=== PATIENT | male | born 1960 | race Caucasian/White ===

== ENCOUNTER 2025-04-21 09:09 | Emergency (ER) | payer BC, SELFPAY ==
[2025-04-21] VITALS (7 sets, daily range): BP systolic 144–179; BP diastolic 83–108; PULSE 60–89; RESP 16–18; TEMP 36.7–37; O2SAT 98–99; BMI 28.3
--- NOTE | 2025-04-21 09:12 | EKG_ITS ---
[facility] Test Date: 2025-04-21 Pat Name: SINTIA BUNDY Department: Room: - Gender: Male [employer]: : 1960 Requested By: Pawel Thomas Order Number: [id number] Reading MD: Pawel Thomas Measurements Intervals Java Rate: 67 P: 44 WV: 149 QRS: 29 QRSD: 85 T: 41 QT: 419 QTc: 444 Interpretive Statements SINUS RHYTHM No previous ECG available for comparison /store/S0/[id number]
--- NOTE | 2025-04-21 09:27 | XR_ITS ---
EXAMINATION: PA chest single view TECHNIQUE: Upright PA chest single view Date and time: April 21, 2025, 0942 hours, comparison March 18, 2016 INDICATIONS: Chest pain today. FINDINGS: Normal heart size Ectatic thoracic aorta. No pneumonia or pulmonary edema Intact osseous structures IMPRESSION: No active disease
--- NOTE | 2025-04-21 09:27 | PD.EDRME ---
Rapid Medical Screening Exam [facility] Arrival date/time: 04/21/25 09:09 64-year-old male with no known medical history presents to the emergency room with a chief complaint of right-sided 5 out of 10 sternal chest pain that radiates to his neck x 2 days I have greeted and performed a focused initial assessment of this patient. A comprehensive ED assessment and evaluation of the patient, analysis of all test results, and completion of the medical decision making process will be conducted by additional ED providers. Chief Complaint: Chest Pain Time Seen by Provider: 04/21/25 09:47 Vital signs: Vital Signs Temperature 98.3 F 04/21/25 09:17 Pulse Rate 78 04/21/25 09:17 Respiratory Rate 18 04/21/25 09:17 Blood Pressure 179/108 H 04/21/25 09:17 Pulse Oximetry (%) 99 04/21/25 09:17 Oxygen Delivery Method Room Air 04/21/25 09:17 Vital signs reviewed by provider: Yes Exam: 5 out of 10 sternal right-sided chest pain that radiates to the neck Strong and regular rhythm S1 and S2 noted no clicks no murmurs no JVD Clear bilateral lung sounds Clinical Impression: STEMI/NSTEMI/chest pain
[2025-04-21 09:53] LABS: Basophils # (Auto) 0.1 Thou/mm3 (0.0-0.2); Basophils % (Auto) 1 % (0-2.5); Eosinophils # (Auto) 0.0 Thou/mm3 (0.0-0.5); Eosinophils % (Auto) 0 % (0-10); Hematocrit 46.3 % (41.0-53.0); Hemoglobin 16.2 g/dL (13.5-16.0); Immature Granulocytes Auto 0.02 Thou/mm3 (0.00-0.00); Lymphocytes # (Auto) 1.4 Thou/mm3 (1.0-4.8); Lymphocytes % (Auto) 16 % (10-50); Mean Corpuscular HGB Conc 35.0 g/dl (31.0-37.0); Mean Corpuscular Hemoglobin 34.2 pg (25.0-35.0); Mean Corpuscular Volume 98 fL (80-100); Monocytes # (Auto) 1.0 Thou/mm3 (0.0-0.8); Monocytes % (Auto) 11 % (0-12); Neutrophils # (Auto) 6.7 Thou/mm3 (1.8-7.7); Neutrophils % (Auto) 72 % (37-80); Nucleated Red Blood Cell # 0.00 Thou/mm3 (0.00-0.00); Nucleated Red Blood Cell % 0 /100 WBC (0); Platelet Count 281 Thou/mm3 (140-440); RDW Standard Deviation 41.6 fL (35.1-43.9); Red Blood Count 4.73 Miln/mm3 (4.50-5.90); White Blood Count 9.2 Thou/mm3 (3.8-10.6)
[2025-04-21 10:06] LABS: INR 1.0 (0.9-1.3); Partial Thromboplastin Time 28.2 Seconds (22.0-36.0); Prothrombin Time 10.9 Seconds (9.0-12.2)
[2025-04-21 10:08] LABS: B-Type Natriuretic Peptide < 20 pg/mL (0-100)
[2025-04-21 10:09] LABS: Collection Type, Urine Clean Catch; Squamous Epithelial Cell,Urine 0 /hpf (0-5)
[2025-04-21 10:13] LABS: Alanine Aminotransferase 34 U/L (10-49); Albumin, Serum 5.3 gm/dL (3.4-4.8); Albumin/Globulin Ratio 1.9 (1.2-2.2); Alkaline Phosphatase 71 U/L (46-116); Anion Gap 10 (7-16); Aspartate Amino Transferase 35 U/L (0-34); BUN/Creatinine Ratio 8 Ratio (12-20); Bilirubin,Total 0.7 mg/dL (0.3-1.2); Blood Urea Nitrogen 11 mg/dL (9-23); Calcium 9.7 mg/dL (8.3-10.6); Calcium (Corrected) 9.7 mg/dL (8.5-10.1); Carbon Dioxide 26.0 mMol/L (20.0-31.0); Chloride 105 mMol/L (98-107); Creatinine (Component) 1.3 mg/dL (0.6-1.3); Estimated Creatinine Clearance 56.5 mL/min (>60); Free T4 (Free Thyroxine) 1.32 ng/dL (0.89-1.76); Globulin 2.8 gm/dL (2.3-3.5); Glucose 109 mg/dL (74-106); Magnesium 2.2 mg/dL (1.6-2.6); Osmolality,Calculated 281 (275-295); Potassium 4.2 mMol/L (3.4-5.1); Sodium 141 mMol/L (136-145); Thyroid Stimulating Hormone 1.00 uIU/mL (0.55-4.78); Total Protein 8.1 gm/dL (5.7-8.2); Troponin I < 0.020 ng/mL (0.0-0.045); eGFR > 60 See Note
[2025-04-21 10:13] LABS: Bilirubin,Urine Negative (Negative); Blood,Urine Negative (Negative); Clarity,Urine Clear (Clear/Hazy); Color,Urine Colorless (Lt Yel-Yel); Culture Indicated,Urine Not Indicated; Glucose, Urine Negative (Negative); Ketones,Urine Negative (Negative); Leukocyte Esterase,Urine Negative (Negative); Nitrite,Urine Negative (Negative); PH,Urine 6.0 (5.0-7.0); Protein,Urine Negative (Neg - Trace); RBC,Urine 1 /hpf (0-3); Specific Gravity,Urine 1.005 (1.001-1.035); Urobilinogen,Urine Negative mg/dL (0.0-1.0); WBC,Urine < 1 /hpf (0-5)
[2025-04-21 10:27] LABS: Amphetamine/Methamp Scrn,U Negative (Negative); Barbiturate Screen,Urine Negative (Negative); Benzodiazepines Screen,Urine Negative (Negative); Benzoylecgonine Screen, Ur Negative (Negative); Fentanyl Screen,Urine Negative (Negative); Opiate Screen,Urine Negative (Negative); THC Screen,Urine Positive (Negative)
--- NOTE | 2025-04-21 11:18 | PD.EDCHEST ---
ED Chest Pain RME/HPI General Chief Complaint: Chest Pain Stated Complaint: CHEST PAIN SINCE LAST NIGHT Time Seen by Provider: 04/21/25 09:47 Arrival date/time: 04/21/25 09:09 Limitations: no limitations RME / HPI RME / HPI narrative: 04/21/25 09:09 64-year-old male with no known medical history presents to the emergency room with a chief complaint of right-sided 5 out of 10 sternal chest pain that radiates to his neck x 2 days I have greeted and performed a focused initial assessment of this patient. A comprehensive ED assessment and evaluation of the patient, analysis of all test results, and completion of the medical decision making process will be conducted by additional ED providers. DR. STEWART MAIN ED EVALUATION: 64 year old male with no known medical history presents to the ED for evaluation of persistent right-sided chest pain without radiation beginning last night. Described as pressure sensation and muscle pain , rating as moderate. Reportedly took Pepcid thinking it may be due to reflux with no change in pain. States after waking noted the pain was still there, prompting ED visit. Denies any associated cough, shortness of breath, sweats, nausea, vomiting, or abdominal pain. No history of similar symptoms or known cardiac history. No other complaints reported. Patient mentioned he is active and while hiking or exercising in the past has not experience chest pain. No known family cardiac history. Exam: 5 out of 10 sternal right-sided chest pain that radiates to the neck Strong and regular rhythm S1 and S2 noted no clicks no murmurs no JVD Clear bilateral lung sounds Impression: STEMI/NSTEMI/chest pain Related Data Allergies Allergy/AdvReac Type Severity Reaction Status Date / Time No Known Allergies Allergy Verified 04/21/25 09:12 Review of Systems Review of Systems Systems Reviewed: All systems reviewed, normal except as documented Past Medical History Past Medical History CARDIAC: Negative Congestive Heart Failure RESPIRATORY: Negative Chronic Obstructive Pulmonary Disease (COPD) GENITOURINARY: Negative Renal Disease ENDOCRINE: Negative Diabetes Mellitus Type 1 or Diabetes Mellitus Type 2 Social History SMOKING STATUS: Never smoker ED Exam General Limitations: Present no limitations General appearance: Present alert and in no apparent distress Head Head exam: Present atraumatic Eye Eye exam: Present normal appearance, PERRL and EOMI ENT ENT exam: Present normal exam, normal oropharynx and mucous membranes moist Neck Neck exam: Present normal inspection, full ROM and trachea midline Chest Chest inspection: Present normal inspection and symmetric chest wall rise; Absent tenderness Respiratory Respiratory exam: Present normal lung sounds bilaterally Cardiovascular Cardiovascular exam: Present regular rate, normal rhythm and normal heart sounds Abdominal Exam Abdominal exam: Present soft and normal bowel sounds Extremities Exam Extremities exam: Present normal inspection and full ROM Back Exam Back exam: Present normal inspection and full ROM Neurological Exam Neurological exam: Present alert, oriented X3 and CN II-XII intact Psychiatric Psychiatric exam: Present normal affect and normal mood Skin Skin exam: Present warm, dry, intact and normal color Course Quality Measures none Orders Category Date Time Status Statistical Engineer NOW Care 04/21/25 11:16 Completed Continuous Pulse Oximetry NOW Care 04/21/25 11:16 Completed EKG (ED ONLY) *Do not use* NOW Care 04/21/25 09:12 Completed Insert IV NOW Care 04/21/25 11:16 Completed EKG (ED Only) Stat Exams 04/21/25 09:12 Draft XR chest 1V portable Stat Exams 04/21/25 09:27 Completed B-Type Natriuretic Peptide Stat Lab 04/21/25 09:33 Completed CBC Stat Lab 04/21/25 09:33 Completed Comprehensive Metabolic Panel Stat Lab 04/21/25 09:33 Completed Drug Screen,Urine Stat Lab 04/21/25 09:50 Completed Free T4 (Free Thyroxine) Stat Lab 04/21/25 09:33 Completed Magnesium Stat Lab 04/21/25 09:33 Completed Partial Thromboplastin Time Stat Lab 04/21/25 09:33 Completed Prothrombin Time with INR Stat Lab 04/21/25 09:33 Completed TSH [Thyroid Stimulating Hormone] Stat Lab 04/21/25 09:33 Completed Troponin I Stat Lab 04/21/25 09:33 Completed Urinalysis, C/S if Indicated Stat Lab 04/21/25 09:50 Completed Aspirin Med 04/21/25 11:49 Discontinued 325 mg PO X1 ONE Sodium Chloride 0.9% 1000 ml [Ns] 1,000 ml Med 04/21/25 11:16 Discontinued IV 100 mls/hr cloNIDine HCL [Catapres] Med 04/21/25 09:28 Discontinued 0.1 mg PO X1 ONE Vital Signs Vital signs: Vital Signs Temperature 98.3 F 04/21/25 09:17 Pulse Rate 78 04/21/25 09:17 Respiratory Rate 18 04/21/25 09:17 Blood Pressure 179/108 H 04/21/25 09:17 Pulse Oximetry (%) 99 04/21/25 09:17 Oxygen Delivery Method Room Air 04/21/25 09:17 Chest Pain MDM Narrative MDM Narrative:: Rosa M Corona am scribing for and in the presence of Dr. Stewart. Patient remains clinically stable throughout the emergency department visit. We reviewed all the results, analysis, and treatment plans. Patient is amenable to discharge. Strict return precautions were outlined. Patient data External records reviewed:: [facility] previous records Clinical information provided by:: patient Social determinants that could affect healthcare access:: none Patient has the following chronic illnesses:: None reported How is presenting disease/condition affected by chronic disease/condition?: no chronic disease Evaluation data The following diagnostics were reviewed and interpreted by me:: lab results, radiology exam(s) and EKG tracing(s) (EKG @ 09:17am, normal sinus rhythm, rate 67, normal axis, normal intervals, no STEMI. ) Lab and/or radiology exams considered but not ordered:: None Interpretation Summary: Ordering Physician: Augustus Sheffield Date of Service: 04/21/25 Procedure(s): XR chest 1V portable Accession Number(s): [id number] cc: Torin Dominguez MD; Augustus Sheffield; Jarred Don MD~ EXAMINATION: PA chest single view TECHNIQUE: Upright PA chest single view Date and time: April 21, 2025, 0942 hours, comparison March 18, 2016 INDICATIONS: Chest pain today. FINDINGS: Normal heart size Ectatic thoracic aorta. No pneumonia or pulmonary edema Intact osseous structures IMPRESSION: No active disease Dictated By: Jarred Don MD Signed By: <Electronically signed by Jarred Don MD in OV> 04/21/25 1015 Medications / Prescriptions Medications or Prescriptions considered but not ordered:: None Medication administrations:: Medication Administration History Discontinued Medications Aspirin (Aspirin 325 Mg Tablet) 325 mg PO X1 ONE Stop: 04/21/25 11:50 Last Admin: 04/21/25 12:04 Dose: 325 mg Documented By: DB Clonidine (Clonidine Hcl 0.1 Mg Tablet) 0.1 mg PO X1 ONE Stop: 04/21/25 09:29 Last Admin: 04/21/25 09:45 Dose: 0.1 mg Documented By: Sodium Chloride (Ns) 1,000 mls @ 100 mls/hr IV .Q10H ONE Stop: 04/21/25 21:15 Last Admin: 04/21/25 11:27 Dose: 100 mls/hr Documented By: LATOYA See above Consultations Consultation(s) initiated? (list below): No Diagnosis Most likely diagnosis given after review of the tests above:: CHEST PAIN Admission Indicated Admission indicated?: not indicated Explain why admission is indicated or not indicated:: With no condition needing emergent intervention, there was no indication for admission. Admission Request Was there a request for admission?: No Disposition Plan Disposition Plan: Discharge Discharge Attestation Discharge Attestation: The patient and all family members were given an opportunity to ask questions and understood the discharge instructions. Discharge instructions specifically effects, indications for sooner follow up or return to the emergency department, and the expected course of current diagnosis. Patient condition: Stable Discharge Plan Plan Patient Disposition: HOME (Self Care) Patient condition on transfer: Stable Prescriptions/Referrals Referrals: Torin Dominguez MD [Primary Care Provider, Family Practice] - In 1 week Demetris Jose MD [Physician, Cardiology] - In 1 week Problem List Clinical Impression: Chest pain Patient/Caregiver Discharge Instructions Discharge Activity: activity as tolerated Education Materials: ED Chest Pain, Uncertain Cause Additional Instructions: Please follow-up with your doctor on Thursday. Consider cardiology evaluation. Consider cardiac stress test. Return to the ER if you have any further chest pain. Take baby aspirin 81 mg that is coated daily. Print Language: Citizen Of [place] Stand Alone Forms: Sofia Award Info., Patient Portal Info Letter
[2025-04-21] MEDS: SODIUM CHLORIDE 0.9% 1000 ML 1,000 ML 100 ML IV (11:27)
== END 2025-04-21 14:16 | disposition home or self-care (01) ==
PROVIDERS: Nurse Practitioner Family; Emergency Provider Family Medicine; PCP Family Medicine
DX: R07.2 Precordial pain (principal)
CPT/HCPCS: 36415; 71045; 80053; 80307; 81001; 83735; 83880; 84439; 84443; 84484; 85025; 85610; 85730; 93005; 99284; J7030; A9270